=== PATIENT | female | born 1960 | race Caucasian/White ===

== ENCOUNTER 2017-09-06 22:18 | Emergency (ER) | END 2017-09-07 01:34 | disposition home or self-care (01) ==

== ENCOUNTER 2018-11-27 09:07 | Emergency (ER) | payer BC ==
[~2018-11-27] VITALS: Ht 175.3 cm; Wt 76.8 kg
[~2018-11-27 09:07] MED LIST: ONDA4TAB14 PO; TRAM50TA2 PO
[2018-11-27 09:11] VITALS: Ht 175.3 cm; Wt 76.8 kg
--- NOTE | 2018-11-27 10:25 | ERD ---
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 The patient states that her initial fl are was September of last year. The patient has since had recurrent episodes of epigastric abdominal discomfort. This morning she had severe epigastric abdominal pain that was nonradiating, now 1 out of 10. She states that she has been changing her diet, denies alcohol use. She denies any fevers or chills. No nausea or vomiting hematemesis or melena. Patient has not seen a primary care physician or specialist during this timeframe. ROS All systems reviewed and are negative except as per history of present illness. Medications Home Meds Active Scripts Ibuprofen* (Motrin*) 800 Mg Tab, 800 MG PO Q6H PRN for PAIN AND OR ELEVATED TEMP, #30 TAB Prov:PARAMJIT BRASHER MD 11/27/18 Tramadol HCl (Tramadol HCl) 50 Mg Tablet, 50 MG PO Q4 PRN for PAIN, #20 TAB Prov:ISABELLA REDMOND 09/07/17 Discontinued Scripts Ondansetron (Ondansetron Odt) 4 Mg Tab.rapdis, 4 MG PO Q6H PRN for NAUSEA AND/OR VOMITING, #10 TAB Prov:ISABELLA REDMOND 09/07/17 Allergies Allergies: Coded Allergies: Penicillins (Verified Allergy, Unknown, 11/27/18) Tetracyclines (Verified Allergy, Unknown, 11/27/18) PMhx/Soc History of Surgery: Yes (RT OOPHERECTOMY) Anesthesia Reaction: No Hx Neurological Disorder: No Hx Respiratory Disorders: No Hx Cardiac Disorders: No Hx Psychiatric Problems: No Hx Miscellaneous Medical Probl: No Hx Alcohol Use: No Hx Substance Use: No Hx Tobacco Use: No Smoking Status: Never smoker FmHx Family History: No diabetes Physical Exam Vitals Vital Signs Date Temp Pulse Resp B/P (MAP) Pulse Ox O2 O2 Flow FiO2 Time Delivery Rate 11/27/18 97.4 83 18 155/80 100 09:11 (105) Physical Exam General: Well developed, well nourished, no acute distress Head: Normocephalic, atraumatic. Eyes: Pupils equally reactive, EOM intact ENT: Moist mucous membranes Neck: Supple, no lymphadenopathy Respiratory: Lungs clear bilaterally, no distress Cardiovascular: RRR, no murmurs, rubs, or gallops Abdominal: Soft, non-tender, non-distended, no peritoneal signs : Deferred MSK: No edema, no unilateral swelling, 5/5 strength Neurologic: Alert and oriented, moving all extremities, normal speech, no focal weakness, no cerebellar signs Skin: No rash Psych: Normal mood Result Diagram: 11/27/18 0935 11/27/18 0935 Results 24 hrs Laboratory Tests Test 11/27/18 09:35 White Blood Count 4.3 10^3/ul Red Blood Count 4.77 10^6/ul Hemoglobin 15.0 g/dl Hematocrit 44.5 % Mean Corpuscular Volume 93.3 fl Mean Corpuscular Hemoglobin 31.4 pg Mean Corpuscular Hemoglobin Concent 33.7 g/dl Red Cell Distribution Width 12.2 % Platelet Count 308 10^3/UL Mean Platelet Volume 10.3 fl Immature Granulocytes % 0.200 % Neutrophils % 37.4 % Lymphocytes % 47.5 % Monocytes % 9.9 % Eosinophils % 4.1 % Basophils % 0.9 % Nucleated Red Blood Cells % 0.0 /100WBC Immature Granulocytes # 0.010 10^3/ul Neutrophils # 1.6 10^3/ul Lymphocytes # 2.1 10^3/ul Monocytes # 0.4 10^3/ul Eosinophils # 0.2 10^3/ul Basophils # 0.0 10^3/ul Nucleated Red Blood Cells # 0.0 10^3/ul Sodium Level 142 mmol/L Potassium Level 3.7 mmol/L Chloride Level 103 mmol/L Carbon Dioxide Level 25 mmol/L Anion Gap 14 Blood Urea Nitrogen 9 mg/dl Creatinine 0.87 mg/dl Est Glomerular Filtrat Rate mL/min > 60 mL/min Glucose Level 119 mg/dl Calcium Level 10.3 mg/dl Total Bilirubin 1.2 mg/dl Direct Bilirubin 0.00 mg/dl Indirect Bilirubin 1.2 mg/dl Aspartate Amino Transf (AST/SGOT) 98 IU/L Alanine Aminotransferase (ALT/SGPT) 99 IU/L Alkaline Phosphatase 119 IU/L Total Protein 7.9 g/dl Albumin 4.9 g/dl Globulin 3.00 g/dl Albumin/Globulin Ratio 1.63 Lipase 258 U/L Current Medications Medications Dose Sig/Pritesh Start Time Status Last (Trade) Ordered Route PRN Stop Time Admin Dose Reason Admin Ketorolac 30 mg ONCE STAT 11/27/18 DC Tromethamine IV 11:23 (Toradol) 11/27/18 11:25 Procedures/MDM EKG, MONITORS, & DIAGNOSTIC IMAGING: GB ultrasound: IMPRESSION: Cholelithiasis. Mild fatty liver. Mild right-sided hydronephrosis. LAB INTERPRETATION: I reviewed the laboratory testing and it shows normal lipase, very mild elevation in liver enzymes, normal bilirubin MEDICAL DECISION MAKING: Patient has been dealing with idiopathic pancreatitis. The patient has not had appropriate follow-up on an outpatient basis. She has minimal symptoms presently. Patient needs thorough outpatient work-up including likely MRI imaging, triglyceride profile among others. Patient is not an alcoholic nor does she use alcohol. Low concern for gallstones though ultrasound of the gallbladder would be reasonable. Her symptoms are well improved and well managed at this time. I expanded the patient we are unlikely to have a solution to her symptoms at this time and the patient likely needs to follow-up with a sp ecialist. We will rule out serious etiology or acute process but if normal work-up the patient can be safely discharged with primary care referral and specialty referral. ER COURSE: * The patient did have a single bout of pain controlled with nonsteroidal anti- inflammatory in the emergency room setting * The patient's laboratory testing is reassuring without evidence of a papular obstruction or acute pancreatitis. The patient's ultrasound shows a gallstone. * It is unclear if the patient was ever truly diagnosed with acute pancreatitis. This is possibly always been a gallbladder issue including biliary colic. At this time there is no evidence of intractable pain, acute cholecystitis or cho ledocholithiasis. I believe the patient can be safely discharged with close outpatient primary care follow-up. General surgery referral. Return precautions discussed and understood. CONSULTATION: None DISPOSITION PLAN: The patient does not have an identifiable emergent medical condition that wa rrants inpatient hospitalization at this time. The patient is deemed safe for discharge with outpatient follow-up. We discussed follow up with the patient's primary care doctor within 24 to 48 hours as needed. We also discussed return to the emergency room for worsening symptoms or worsening condition. Outpatient referral: General surgeon Discharge Medications: Motrin Departure Diagnosis: Primary Impression: Biliary colic Additional Impression: Epigastric abdominal pain Condition: Stable PARAMJIT BRASHER MD Nov 27, 2018 10:25
[2018-11-27] MEDS ORDERED: IBUP800T48 PO (11:16)
[2018-11-27] MEDS ORDERED: KETOROLAC 30 MG INJ IV STA (11:23)
[2018-11-27 11:48] VITALS: BP 157/87; PULSE 78; RESP 15
== END 2018-11-27 12:01 | disposition home or self-care (01) ==
LOC: E/R 09:07
DX: K80.50 Calculus of bile duct without cholangitis or cholecystitis without obstruction (principal)
CPT/HCPCS: 36415; 76705; 80053; 83690; 85025; 96374; 99285; J1885